=== PATIENT | female | born 1975 | race Caucasian/White ===

== ENCOUNTER → 2017-10-26 | Outpatient (CLI) | payer BC ==
[~2017-10-26] MED LIST: CLON0.5T PO; CONTRAST GIVEN MC PRN; GABA-587 PO; IOHEXOL 240 MG/ML 50ML VIAL. PO ONE; IOHEXOL 300 MG/ML 100ML VIAL. IV ONE; METR250T11 PO; RANI150C PO; SERT25TA PO
--- NOTE | 2017-10-26 16:15 | RAD ---
CTA of the chest with and without contrast Clinical indications: Shortness of breath. History of pulmonary embolism. Technique: Noncontrast axial localizer was performed. After IV infusion of a total of 150 cc of Omnipaque 300, helical CT scanning of the chest was performed using the CT pulmonary embolism protocol. A coronal MIP reconstruction was generated. 2 separate scans had to be performed due to poor opacification of the pulmonary arteries on the initial scan. PQRS Compliance Statement: One or more of the following individualized dose reduction techniques were utilized for this examination: 1. Automated exposure control 2. Adjustment of the mA and/or kV according to patient size 3. Use of iterative reconstruction technique Comparison: Chest CT dated September 18, 2017. Findings: No pulmonary embolism is seen today. The previously seen pulmonary embolism involving the right upper lobe apical branch has resolved. No focal aneurysmal dilatation or dissection of the thoracic aorta is seen. The heart size is enlarged. No pericardial effusion is evident. No enlarged thoracic lymphadenopathy is seen. No adrenal mass is evident. 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 Old granulomatous disease is seen. No lung mass is evident. Bilateral groundglass lung infiltrates are seen which most likely is due to atelectasis secondary to decreased inspiration given the patient's large body habitus. No lung consolidation with air bronchograms is seen otherwise. No pleural effusion or pneumothorax is evident. No osteolytic process is seen. IMPRESSION: No pulmonary embolism is seen today. Bilateral groundglass lung infiltrates most likely due to atelectasis related to decreased inspiration given the patient's larger body habitus.
== END | disposition home or self-care (01) ==
LOC: CT 10:26
PROVIDERS: ATTEND Internal Medicine Gastroenterology
DX: K80.20 Calculus of gallbladder without cholecystitis without obstruction (principal); K50.90 Crohn's disease, unspecified, without complications; R91.8 Other nonspecific abnormal finding of lung field; Z86.711 Personal history of pulmonary embolism
CPT/HCPCS: 74177; Q9966; Q9967